=== PATIENT | male | born 1970 | race Caucasian/White ===

== ENCOUNTER 2016-09-22 08:20 | Emergency (ER) | payer SELFPAY ==
[2016-09-22 08:38] VITALS: BP 142/87
--- NOTE | 2016-09-22 08:41 | ED Physician Documentation ---
General Adult - HISTORIAN Historian: patient - HPI Stated Complaint: rash Chief Complaint: General Adult Onset: days ago (1) Severity: moderate Further Comments: yes (Pt is a 46 yo male with rash on his torso, extremities and face. Pt does not know what he may have been exposed to to cause the rash. He did cut down a tree yesterday. No difficulty breathing or swallowing.) - ROS CONST: no problems EYES/ENT: none CVS/RESP: none GI/: none MS/SKIN/LYMPH: rash - PAST HX Past History: other (appendectomy, dental surgery, ortho surgery) Allergies/Adverse Reactions: Allergies Allergy/AdvReac Type Severity Reaction Status Date / Time Penicillins Allergy Mild Rash Verified 09/22/16 08:29 Home Medications: Ambulatory Orders Medication Instructions Recorded NK [NK] 09/22/16 - SOCIAL HX Smoking History: cigarettes - FAMILY HX Family History: No - VITAL SIGNS Vital Signs: Vital Signs Temp Pulse Resp BP Pulse Ox 99.1 F 97 H 19 142/87 98 09/22/16 08:30 09/22/16 08:30 09/22/16 08:30 09/22/16 08:30 09/22/16 08:30 - REVIEWED ASSESSMENTS Nursing Assessment Reviewed: Yes Vitals Reviewed: Yes Progress - Progress Progress: Solu-medrol 125 mg IM in ER. Rx Prednisone 50 mg. Take one by mouth once daily for 5 days. Start on 09/23/16. Benadryl (over the counter) Use as directed. ED Results Lab/Radiology - Orders Orders: ED Orders Category Date Time Status methylPREDNISolone SOD SUCC [Solu-MEDROL] Med 09/22/16 08:38 Once 125 mg IM NOW ONE General Adult Physical Exam - PHYSICAL EXAM GENERAL APPEARANCE: mild distress EENT: pharynx normal NECK: normal inspection, supple RESPIRATORY: no resp distress, chest non-tender, breath sounds normal CVS: reg rate & rhythm, heart sounds normal ABDOMEN: soft, no organomegaly, normal bowel sounds BACK: normal inspection, no CVA tenderness SKIN: other (raised erytematous patches 1-2 cm on torso and extremities) EXTREMITIES: non-tender, normal range of motion, no evidence of injury, no edema NEURO: oriented X3, motor nml, sensation nml Discharge Clincal Impression: Rash Referrals: Ezekiel Chauhan MD [Primary Care Provider] - Home Medications: Ambulatory Orders NK [NK] 09/22/16 Condition: Good Disposition: 01 HOME, SELF-CARE Decision to Admit: NO Decision Time: 08:41
[2016-09-22] MEDS: methylPREDNISolone SOD SUCC 125 MG/2 ML VIAL IM ONE (08:44)
== END 2016-09-22 08:50 | disposition home or self-care (01) ==
LOC: ED 08:20
DX: R21 Rash and other nonspecific skin eruption (principal)
CPT/HCPCS: 96372; 99283; J2930

== ENCOUNTER 2017-09-16 17:41 | Emergency (ER) | payer SELFPAY ==
--- NOTE | 2017-09-16 18:10 | ED Physician Documentation ---
Lower Extremity Problem - HISTORIAN Historian: patient - HPI Stated Complaint: L knee pain Chief Complaint: Lower Extremity Problem Additional Information: 4 month history of hip and knee pain on the left. Started when putting a deck on the back of the house. No specific injury noted. Has been persistent since then. Pain is worse with laying on the right side in bed, walking. Pain is improved with elevation. Improved with Acetaminophen 500mg tablet. Has some popping in the knee, feels that it might give away. - ROS CONST: no problems - PAST HX Past History: none PE Risk Factors: none Surgeries/Procedures: other (shoulder left, appendectomy) Immunizations: referred to PCP Allergies/Adverse Reactions: Allergies Allergy/AdvReac Type Severity Reaction Status Date / Time Penicillins Allergy Mild Rash Verified 09/16/17 17:49 Home Medications: Ambulatory Orders Medication Instructions Recorded Naproxen [Naprosyn] 500 mg PO BID PRN #60 tablet 09/16/17 - SOCIAL HX Smoking History: greater than 1 pack/day Alcohol Use: none Drug Use: none - FAMILY HX Family History: no significant history - VITAL SIGNS Vital Signs: Vital Signs Temp Pulse Resp BP Pulse Ox 98.6 F 94 H 18 132/88 96 09/16/17 19:25 09/16/17 17:45 09/16/17 19:25 09/16/17 19:25 09/16/17 19:25 - REVIEWED ASSESSMENTS Nursing Assessment Reviewed: Yes Vitals Reviewed: Yes ED Results Lab/Radiology - Radiology Radiology Impressions: Left hip, two views History: Lateral hip pain without injury. Findings: The osseous structures are intact without acute fracture. There is narrowing of the left hip joint space with associated mild marginal spurring. No soft tissue abnormality. Impression: 1. No acute osseous abnormality. 2. Mild left hip osteoarthritis. Left knee, three views. History: PT STATES LATERAL LT KNEE PAIN X4 MONTHS. NO KNOWN INJURY. NO Hx OF Sx. Findings: The osseous structures are intact without acute fracture. The joint space and alignment are normal. There is no soft tissue swelling. Impression: 1. No acute osseous abnormality. - Orders Orders: ED Orders Category Date Time Status LT HIP 2VIEW COMPLETE [RAD] Routine Exams 09/16/17 Completed XR KNEE 3 VIEWS [KNEE 3 VIEWS] [RAD] Stat Exams 09/16/17 Completed Lower Extremity Problem - EXAM General Appearance: mild distress Hips: right hip: non-tender, normal inspection, normal range of motion, no evidence of injury RESPIRATORY: no resp distress CVS: reg rate & rhythm, heart sounds normal, equal pulses VASCULAR: no vascular compromise NEURO/PSYCH: oriented X3, mood/affect nml, cognition normal Discharge Clincal Impression: Trochanteric bursitis Prescriptions: Naproxen [Naprosyn] 500 mg PO BID PRN #60 tablet PRN Reason: leg pain Referrals: Primary Doctor,No [Primary Care Provider] - 2 Days Additional Instructions: 1. Take Naprosyn as directed with food. 2. Do stretching exercises 3. If not improving to follow-up with your primary care provider about further treatment and diagnostic studies. Condition: Good Disposition: 01 HOME, SELF-CARE Decision to Admit: NO Date of Decison to Admit: 09/16/17 Decision Time: 19:12
[2017-09-16 18:16] VITALS: BP 132/88
--- NOTE | 2017-09-16 18:50 | Diagnostic Imaging Report ---
[facility] [address] [facility] [address] [address] Report Submission Date: Sep 16, 2017 6:46:33 PM CDT Patient Study Name: ROGELIO WAGONER Date: Sep 16, 2017 6:12:41 PM CDT Modality Type: DX Gender: M Description: LOWER EXTREMITY : 66 Institution: [facility] Physician: ADRIEL LOPEZ Left knee, three views. History: PT STATES LATERAL LT KNEE PAIN X4 MONTHS. NO KNOWN INJURY. NO Hx OF Sx. Findings: The osseous structures are intact without acute fracture. The joint space and alignment are normal. There is no soft tissue swelling. Impression: 1. No acute osseous abnormality. Electronically signed on Sep 16, 2017 6:46:33 PM CDT by: Glen REEVES
--- NOTE | 2017-09-16 18:53 | Diagnostic Imaging Report ---
[facility] [address] [facility] [id number] Report Submission Date: Sep 16, 2017 6:51:35 PM CDT Patient Study Name: ROGELIO WAGONER Date: Sep 16, 2017 6:17:41 PM CDT Modality Type: DX Gender: M Description: PELVIS : 66 Institution: [facility] Physician: ADRIEL LOPEZ Left hip, two views History: Lateral hip pain without injury. Findings: The osseous structures are intact without acute fracture. There is narrowing of the left hip joint space with associated mild marginal spurring. No soft tissue abnormality. Impression: 1. No acute osseous abnormality. 2. Mild left hip osteoarthritis. Electronically signed on Sep 16, 2017 6:51:35 PM CDT by: Glen REEVES
== END 2017-09-16 19:25 | disposition home or self-care (01) ==
LOC: ED 17:41
DX: M70.62 Trochanteric bursitis, left hip (principal); M25.562 Pain in left knee
CPT/HCPCS: 73562; 99283

== ENCOUNTER 2018-01-16 09:13 | Outpatient (CLI) | payer SELFPAY | END 2018-01-16 09:15 | LOC: RAD 09:13 | PROVIDERS: ATTEND Nurse Practitioner Family | DX: Z53.9 Procedure and treatment not carried out, unspecified reason (principal) ==

== ENCOUNTER 2018-12-29 19:40 | Emergency (ER) | payer SELFPAY ==
--- NOTE | 2018-12-29 20:03 | ED Physician Documentation ---
Dizziness - HISTORIAN Historian: patient - HPI Stated Complaint: dizziness x 3 weeks Chief Complaint: Dizziness Timing: other (3 weeks ) Severity: moderate Associated Symptoms: other (he has had no associated symptoms until tonight he had nausea ) Further Comments: yes (He has had dizziness for 3 weeks he did see his PCP and she told him his ears were "swollen" and he was sent home. The PCP called today and asked how he was and they told him still dizzy so she did order antibiotics and with picking them up at [place] he got very dizzy and then had nausea and vomiting. He denies any weakness. No recent injury. No fever) - ROS CONST: recent illness (otitis ) EYES/ENT: problems with vision (dizzy ). denies: sore throat GI/: denies: abdominal pain, diarrhea - PAST HX Past History: none Cardiac Disease: none Surgeries/Procedures: none Immunizations: UTD Allergies/Adverse Reactions: Allergies Allergy/AdvReac Type Severity Reaction Status Date / Time Penicillins Allergy Mild Rash Verified 09/16/17 17:49 Home Medications: Ambulatory Orders Medication Instructions Recorded Naproxen [Naprosyn] 500 mg PO BID PRN #60 tablet 09/16/17 - SOCIAL HX Smoking History: non-smoker Alcohol Use: none Drug Use: none - FAMILY HX Family History: none - VITAL SIGNS Vital Signs: Vital Signs Temp Pulse Resp BP Pulse Ox 132/88 09/16/17 19:25 - REVIEWED ASSESSMENTS Nursing Assessment Reviewed: Yes Vitals Reviewed: Yes Progress - Progress Progress: 2049: Discussed results. He needs to follow with PCP and notify her of findings DG ED Results Lab/Radiology - Orders Orders: ED Orders Category Date Time Status IV Started NOW Care 12/29/18 19:[address] BRAIN W/O CONTRAST Stat Exams 12/29/18 Ordered CBC/PLATELET/DIFF Stat Lab 12/29/18 20:00 Received CMP Stat Lab 12/29/18 20:00 Received 0.9 % Sodium Chloride [Normal Saline] 1,000 ml Med 12/29/18 20:00 Ordered IV NOW Ondansetron HCl/Pf [Zofran] Med 12/29/18 20:00 Once 4 mg IVP NOW ONE Dizziness Physical Exam - Physical Exam General Appearance: no distress EENT: eye inspection normal, ENT inspection normal, pharynx normal, no signs of dehydration, abnormal TM (bilateral buldging and red ) Neck: normal inspection Respiratory: no respiratory distress, breath sounds nml CVS: reg rate & rhythm, heart sounds normal, equal pulses Abdomen: soft, normal bowel sounds, no distension Skin: warm/dry, normal color, cyanosis Neuro: nml orientation, nml speech, nml cognition, mood/affect nml Extremities: non-tender Cranial: nml as tested, no evidence of acute CVA Cerebellar: nml as tested Sensorimotor: motor nml Discharge Clincal Impression: Otitis media of both ears Qualifiers: Otitis media type: suppurative Chronicity: acute Recurrence: non-recurrent Spontaneous tympanic membrane rupture: without spontaneous rupture Qualified Code(s): H66.003 - Acute suppurative otitis media without spontaneous rupture of ear drum, bilateral Referrals: Primary Doctor,No [Primary Care Provider] - 2 Days Comments: 1. Medications as ordered 2. Change position slowly 3. Do not drive while dizzy 4. Follow up with PCP in 2-4 days 5. Return to ER for any increased concerns Condition: Stable Disposition: 01 HOME, SELF-CARE Decision to Admit: NO Date of Decison to Admit: 12/29/18 Decision Time: 20:53
[2018-12-29 20:04] LABS: BASOPHILS % 0.5 % (0.0-1.5); NEUTROPHILS # 11.1 # k/uL (1.4-7.7)
[2018-12-29 20:13] LABS: eGFR (Non-African) > 60
[2018-12-29] MEDS: 0.9 % SODIUM CHLORIDE 1,000 ML IV ONE (20:15)
[2018-12-29] MEDS: ONDANSETRON HCL/PF 4 MG/ 2ML VIAL IVP ONE (20:15)
[2018-12-29 22:07] VITALS: BP 120/77
== END 2018-12-29 20:53 | disposition home or self-care (01) ==
LOC: ED 19:40
DX: H66.003 Acute suppurative otitis media without spontaneous rupture of ear drum, bilateral (principal)
CPT/HCPCS: 70450; 80053; 85025; 96361; 96374; 99282; 99284; J2405; J7030; S1016